=== PATIENT | female | born 1935 | race Caucasian/White ===

== ENCOUNTER 2017-10-07 08:17 | Emergency (ER) | payer OTHER, BC, MEDICARE ==
[~2017-10-07] VITALS: Ht 154.9 cm; Wt 77.2 kg
[~2017-10-07 08:17] MED LIST: AMLODIPINE BESYL5 MG PO; ASPIRIN81 M2 PO; CALTRATE PLUS1 EACH PO; CRANBERRY TABL1 EACH PO; ONE DAILY FOR1 EAC1 PO; PEPCID AC10 MG PO; PRAVASTATIN SOD10 MG PO; SLOW-MAG,MAG DE64 MG PO; TYLENOL ARTHRI650 MG PO; VALSARTAN-HCTZ1 EAC4 PO; VITAMIN D31000 UNI2 PO; XARELTO20 MG PO
[2017-10-07 09:03] LABS: ADD MIUA? YES; BILIRUBIN NEGATIVE; BLOOD MODERATE; COLOR YELLOW ((YELLOW)); GLUCOSE (STRIP) NEGATIVE; KETONES NEGATIVE; LEUKOCYTES TRACE; NITRITE NEGATIVE; PROTEIN (STRIP) NEGATIVE; SPECIFIC GRAVITY 1.013 (1.000-1.030); UROBILINOGEN 0.2 MG/DL (0.2-1.0)
[2017-10-07 09:15] LABS: BACTERIA NONE SEEN /HPF; EPITHELIAL CELLS NONE SEEN /HPF; MUCUS NONE SEEN /LPF; RED BLOOD CELLS 0-5 /HPF (0-5); UCUL ADDED? NO; WHITE BLOOD CELLS 0-5 /HPF (0-5)
[2017-10-07] MEDS ORDERED: KEFLEX500 MG PO (09:48)
[2017-10-07 10:48] VITALS: BP 159/60
== END 2017-10-07 10:48 | disposition home or self-care (01) ==
LOC: EME 08:17
PROVIDERS: Emergency Medicine
DX: N39.0 Urinary tract infection, site not specified (principal); R63.4 Abnormal weight loss; Z86.711 Personal history of pulmonary embolism; Z79.01 Long term (current) use of anticoagulants; I10 Essential (primary) hypertension; E78.5 Hyperlipidemia, unspecified
CPT/HCPCS: 81003; 87086; 99281; 99283

== ENCOUNTER 2017-10-07 21:33 | Inpatient (IN) | payer OTHER, BC, MEDICARE ==
[~2017-10-07] VITALS: Ht 147.3 cm; Wt 74.6 kg
[~2017-10-07 21:33] MED LIST changes: +KEFLEX500 MG PO
[2017-10-08 13:43] VITALS: BP 134/59
[2017-10-08 19:58] VITALS: BP 145/64
[2017-10-08 23:22] VITALS: BP 150/67
[2017-10-09 04:57] VITALS: BP 151/67
[2017-10-09 06:03] LABS: HEMATOCRIT 35.7 % (36.0-46.0); MCV 100.3 FL (83-99)
[2017-10-09 07:14] LABS: ANION GAP 9 MEQ/L (2-14); CHLORIDE 109 MEQ/L (99-109); GFR ESTIMATE (CALCULATED) > 59 mL/min/; GLUCOSE 117 mg/dL (70-99); POTASSIUM 3.8 MEQ/L (3.7-5.4); SAMPLE HEMOLYSIS CHECK 0; SAMPLE ICTERIC CHECK 0; SAMPLE LIPEMIA CHECK 0; SODIUM 145 MEQ/L (136-147); UREA NITROGEN (BUN) 13 mg/dL (9-23)
[2017-10-09 08:18] VITALS: BP 177/77
[2017-10-09 08:24] VITALS: BP 144/72
[2017-10-09 15:59] VITALS: BP 124/58
[2017-10-09 19:39] VITALS: BP 128/66
[2017-10-09 23:37] VITALS: BP 148/69
[2017-10-10 03:22] VITALS: BP 128/74
[2017-10-10 07:12] LABS: HEMATOCRIT 33.8 % (36.0-46.0)
[2017-10-10 08:03] VITALS: BP 133/60; BP 148/54
[2017-10-10] MEDS ORDERED: HYDROCODON-ACE1 EAC7 PO (11:12)
[2017-10-10] MEDS ORDERED: SENNA PLUS TAB1 EACH PO (11:12)
[2017-10-10] MEDS ORDERED: NYAMYC60 GM TP (11:39)
[2017-10-10 15:49] VITALS: BP 155/68
[2017-10-11 00:30] VITALS: BP 134/63
[2017-10-11 07:57] VITALS: BP 152/70
== END 2017-10-11 12:25 | DRG 470 ==
LOC: 2SOUTH → ENRESERV 21:33 → 2SOUTH 10-08 09:55 → 3EAST 10-08 11:20 → 2SOUTH 10-08 11:20 → ENRESERV 10-08 17:07 → 3EAST 10-08 17:36
PROVIDERS: Orthopaedic Surgery
PROC: 0SRC0J9 Replacement of Right Knee Joint with Synthetic Substitute, Cemented, Open Approach (ICD-10-PCS; principal; 2017-10-08)
DX: M17.11 Unilateral primary osteoarthritis, right knee (principal); M79.662 Pain in left lower leg; I10 Essential (primary) hypertension; L30.9 Dermatitis, unspecified; E78.00 Pure hypercholesterolemia, unspecified; Z86.711 Personal history of pulmonary embolism; Z82.49 Family history of ischemic heart disease and other diseases of the circulatory system; Z83.3 Family history of diabetes mellitus; Z79.01 Long term (current) use of anticoagulants
CPT/HCPCS: 71010; 80048; 85014; 85018; 93971; 97530 GO; C1713; J0131; J0690; J1885; J2250; J2795; J7050; Q0175; S0020